=== PATIENT | male | born 1965 | race Caucasian/White ===

== ENCOUNTER 2022-05-26 14:10 | Outpatient (CLI) | payer MEDICAID, SELFPAY ==
[2022-05-26 21:22] LABS: Albumin* 4.3 g/dL (3.3-5.0); Chloride* 101 mmol/L (96-114); Potassium* 4.2 mmol/L (3.6-5.1); Sodium* 136 mmol/L (135-149)
[2022-05-26 21:23] LABS: Alkaline Phosphatase* 92 U/L (40-150); Aspartate Amino Transferase* 46 U/L (12-35); Bilirubin Total* 1.1 mg/dL (0.1-1.5); Blood Urea Nitrogen* 19 mg/dL (7-30); Carbon Dioxide* 26 mmol/L (20-32); Estimated Glomerular Filt Rate 89 ml/min; Glucose* 102 mg/dL (60-115); Total Protein* 7.4 g/dL (6.0-8.3)
[2022-05-26 21:24] LABS: Alanine Aminotransferase* 64 U/L (4-50)
== END 2022-05-26 14:11 | disposition home or self-care (01) ==
PROVIDERS: PCP Family Medicine; Visit Provider Family Medicine
DX: E78.5 Hyperlipidemia, unspecified (principal); I10 Essential (primary) hypertension; R73.03 Prediabetes
CPT/HCPCS: 80053

== ENCOUNTER 2023-04-05 07:30 | Emergency (ER) | payer MEDICAID, SELFPAY ==
[2023-04-05 07:35] VITALS: BP 167/92; PULSE 113; RESP 18; TEMP 36.6; O2SAT 99; BMI 36.0
--- NOTE | 2023-04-05 08:26 | ED_ITS ---
HPI - General Adult General Date Seen: 04/05/23 Chief complaint: Urogenital Problems, Male Stated complaint: passing blood rectally Time Seen by Provider: 04/05/23 07:49 Source: patient Mode of arrival: ambulatory Limitations: no limitations History of Present Illness HPI narrative: Patient is a 58-year-old gentleman who presents here for evaluation of rectal bleeding, he had 3 episodes this morning where there was blood mixed in the stool, there is no pain when he passes this. He denies a history in the past of rectal bleeding, has no abdominal pain, maybe a little bit of bloating. Does not take ibuprofen or other NSAIDs, does drink alcohol but tells me he drinks not that much, maybe 2-3 oz per day. No history of previous liver issues. But there was some concern I noted in his chart about his alcohol intake. No family history of colon cancer, there is no personal history of this colon cancer or IBD. Does admit to me that he is very medical worried, has fairly bad anxiety over anything medical. No history of nasal bleeding, he is not vomiting up blood, no fevers chills or weight loss, or personal history of malignancy. Related Data Previous Rx's Medication Instructions Recorded ciclopirox 8 % topical solution 1 applic topical QDAY 8 weeks #6.6 05/26/22 mL rosuvastatin 5 mg tablet 2.5 mg (1/2 x 5 mg) PO .2x/wk #60 05/26/22 tabs Allergies Allergy/AdvReac Type Severity Reaction Status Date / Time No Known Drug Allergies Allergy Verified 04/05/23 07:34 Review of Systems Status of ROS: Reports: 10 or more systems reviewed and unremarkable except as noted in History and below [facility] Medical History Reactive cervical lymphadenopathy ?R59.0 - Localized enlarged lymph nodes (ICD-10) Nonalcoholic fatty liver disease (12/04/09) ?K76.0 - Fatty (change of) liver, not elsewhere classified (ICD-10) Knee pain, left ?M25.562 - Pain in left knee (ICD-10) Elevated transaminase measurement (12/08/09) ?R74.01 - Elevation of levels of liver transaminase levels (ICD-10) Cough due to bronchospasm ?J98.01 - Acute bronchospasm (ICD-10) Cough ?R05.9 - Cough, unspecified (ICD-10) Surgical History Status post laparoscopic cholecystectomy ?Z90.49 - Acquired absence of other specified parts of digestive tract (ICD- 10) Family History Aunt Colorectal cancer Father Sudden cardiac , Onset Age: 70 Kidney stone Sister Kidney stone Uncle Kidney stone Other Diabetes Social History Narrative: Does not drink alcohol Does not use illicit drugs Former smoker- quit 2010 Smoking Status: Never smoker Do you use any of these nicotine containing products: None Second hand tobacco smoke exposure: No How often do you have a drink containing alcohol: 2-3 times a week How many standard drinks containing alcohol do you have on a typical day: 1 or 2 How often do you have six or more drinks on one occasion: Never AUDIT-C Alcohol total score: 3 Non-prescribed substance use: denies use Exam Narrative: Exam Narrative: On examination in room 2 he is in no apparent distress delightful gentleman vital signs are listed otherwise normal with slight elevation is heart rate, likely due to his anxiety. Pupils are equal round reactive to light there is no scleral icterus or redness is conjunctiva are well perfused. TMs are normal his oropharynx is normal his neck is supple there is no lymphadenopathy anterior posterior chains or supraclavicular region, his chest is clear bilaterally with no wheezing crackles noted his heart sounds are normal his abdomen is obese, there is no organomegaly, no tenderness to palpation, bowel sounds are normal, normal male genitalia and otherwise uncircumcised. Rectal exam shows some areas of irritation just outside his rectal mucosa, that is slightly bleeding. Did have 1 small hemorrhoid internally, that was bleeding a little bit. But I could not feel any obvious masses, he does have a lot a rectal spasm, anoscope positions atraumatically, healthy mucosa is noted, with no evidence of blood, hemoccult is done, which is positive. We will go ahead and get some blood from this gentleman, I will do LFTs, CBC basic metabolic profile PT PTT, and I will speak to him after this. He may need a colonoscopy, as he is in the age for screening. Const: Vital Signs, click to edit/add: Vital Signs - 24 hr 04/05/23 07:35 04/05/23 10:24 04/05/23 11:39 Temperature 97.8 F Pulse Rate [Right Pulse Oximeter] 113 H 95 95 Respiratory Rate 18 17 17 Blood Pressure [Ri ght Upper Arm] 167/92 H 161/94 H 149/86 H Pulse Oximetry 99 99 99 Oxygen Delivery Me thod Room Air Room Air Room Air Course Course Hospital Course: Patient had no further episodes of bleeding I reassured him, hemoglobin normal, LFTs were reasonable I put through an order for a colonoscopy, he will return if any signs symptoms of worsening. Vital Signs Vital signs: Initial Vital Signs Temperature 97.8 F 04/05/23 07:35 Temperature Source Temporal Artery Scan 04/05/23 07:35 Pulse Rate 113 H 04/05/23 07:35 Pulse Rhythm Regular 04/05/23 07:35 Pulse Strength 3+ Normal 04/05/23 07:35 Respiratory Rate 18 04/05/23 07:35 Blood Pressure 167/92 H 04/05/23 07:35 Blood Pressure Mean 117 H 04/05/23 07:35 Blood Pressure Position Sitting 04/05/23 07:35 Pulse Oximetry 99 04/05/23 07:35 Oxygen Delivery Method Room Air 04/05/23 07:35 Vital Signs Temperature 97.8 F 04/05/23 07:35 Pulse Rate 113 H 04/05/23 07:35 Respiratory Rate 18 04/05/23 07:35 Blood Pressure 167/92 H 04/05/23 07:35 Pulse Oximetry 99 04/05/23 07:35 Oxygen Delivery Method Room Air 04/05/23 07:35 Temperature 97.8 F 04/05/23 07:35 Pulse Rate 95 04/05/23 11:39 Respiratory Rate 17 04/05/23 11:39 Blood Pressure 149/86 H 04/05/23 11:39 Pulse Oximetry 99 04/05/23 11:39 Oxygen Delivery Method Room Air 04/05/23 11:39 Medical Decision Making MDM Narrative Medical decision making narrative: During this evaluation I considered multiple causes into rectal fissure, hemorrhoids, trauma, upper GI bleeding from sources, inflammatory bowel disease, diverticular disease with angiodysplasia, colon cancer, and other life- threatening causes. Lab Data Lab results reviewed: Yes I reviewed the patient's lab results Labs: Lab Results 04/05/23 04/05/23 Range/Units 08:44 09:29 WBC 6.76 (4.50-11.00) K/uL RBC 5.62 (4.30-5.90) m/uL Hgb 16.2 (13.5-17.5) gm/dL Hct 48.9 (37.0-53.0) % MCV 87 (80-100) fL MCH 29 (26-34) pg MCHC 33 (32-36) gm/dL RDW Coeff of Christiane 12.7 (11.5-15.5) % Plt Count 237 (140-440) K/uL Neut % (Auto) 80.0 H (42.0-72.0) % Lymph % (Auto) 14.5 L (20-44) % Eagle % (Auto) 4.1 (0.0-11.0) % Eos % (Auto) 0.3 (0.0-7.0) % Baso % (Auto) 0.4 (0.0-3.0) % Neut # (Auto) 5.40 (1.7-7.0) K/uL Lymph # (Auto) 1.00 (0.90-2.90) K/uL Eagle # (Auto) 0.30 (0.00-0.90) K/UL Eos # (Auto) 0.02 (0.00-0.50) K/uL Baso # (Auto) 0.03 (0.00-0.30) K/uL INR 0.96 (0.91-1.10) APTT 30 (23-33) Seconds Sodium 137 (135-149) mmol/L Potassium 3.9 (3.6-5.1) mmol/L Chloride 103 (96-114) mmol/L Carbon Dioxide 27 (20-32) mmol/L BUN 16 (7-30) mg/dL Creatinine 0.9 (0.5-1.5) mg/dL Estimated Creat Clear 85.69 Estimated GFR 100 ml/min Glucose 134 H (60-115) mg/dL Calcium 8.9 (8.4-10.6) mg/dL Total Bilirubin 0.7 (0.1-1.5) mg/dL Direct Bilirubin 0.3 (0.0-0.5) mg/dL AST 39 H (12-35) U/L ALT 36 (4-50) U/L Alkaline Phosphatase 106 (40-150) U/L Total Protein 7.7 (6.0-8.3) g/dL Albumin 4.5 (3.3-5.0) g/dL Lab Acknowledgement Test Added Discharge Plan Discharge Clinical Impression: Anxiety about health, Rectal bleed Patient Disposition: Home, Self-Care Condition: Stable Instructions: Gastrointestinal Bleeding (ED), Rectal Bleeding (ED), Anxiety (ED) Additional Instructions: Home rest avoidance of nonsteroidal anti-inflammatory drugs (ibuprofen, Aleve, aspirin) avoidance of alcohol, follow-up for colonoscopy of I have ordered this. Make an appointment to see a primary care physician, for further evaluation. I think this is likely little bit of irritation, maybe even internal hemorrhoid causing her discomfort, increasing bleeding, where your having more than a cup of blood, then you need to come back and be seen, if your straining to have a bowel movement, then a bowel softener such as Colace is recommended. Return as above Prescriptions: No Action rosuvastatin 5 mg tablet 2.5 mg PO .2x/wk Qty: 60 1RF ciclopirox 8 % solution 1 applic topical QDAY 56 Days Qty: 6.6 3RF Follow Up/Referrals: Alexander Kramer MD [Staff Physician] - Colleen Alvarez MD [Primary Care Provider] - Stand Alone Forms: [employer] Info Instructions
[2023-04-05 08:56] LABS: Basophils Absolute Auto 0.03 K/uL (0.00-0.30); Basophils Percent Auto 0.4 % (0.0-3.0); Eosinophils Absolute Auto 0.02 K/uL (0.00-0.50); Eosinophils Percent Auto 0.3 % (0.0-7.0); Hematocrit 48.9 % (37.0-53.0); Hemoglobin* 16.2 gm/dL (13.5-17.5); Immature Granulocytes Abs Auto 0.05 K/uL (0.00-0.30); Immature Granulocytes Pct Auto 0.7 %; Lymphocytes Percent Auto 14.5 % (20-44); Mean Corpuscular HGB Conc 33 gm/dL (32-36); Mean Corpuscular Hemoglobin 29 pg (26-34); Mean Corpuscular Volume 87 fL (80-100); Monocytes Percent Auto 4.1 % (0.0-11.0); Platelet Count* 237 K/uL (140-440); RDW Coefficient of Variation % 12.7 % (11.5-15.5); Red Blood Count 5.62 m/uL (4.30-5.90); White Blood Count* 6.76 K/uL (4.50-11.00)
[2023-04-05 09:04] LABS: Slide Review Reflex No
[2023-04-05 09:12] LABS: Chloride* 103 mmol/L (96-114); Potassium* 3.9 mmol/L (3.6-5.1); Sodium* 137 mmol/L (135-149)
[2023-04-05 09:13] LABS: INR 0.96 (0.91-1.10); Prothrombin Time 13.4 Seconds
[2023-04-05 09:14] LABS: Partial Thromboplastin Time* 30 Seconds (23-33)
[2023-04-05 09:15] LABS: Blood Urea Nitrogen* 16 mg/dL (7-30); Carbon Dioxide* 27 mmol/L (20-32); Creatinine* 0.9 mg/dL (0.5-1.5); Est. Creatinine Clearance* 85.69; Estimated Glomerular Filt Rate 100 ml/min
[2023-04-05 09:16] LABS: Calcium* 8.9 mg/dL (8.4-10.6); Glucose* 134 mg/dL (60-115)
[2023-04-05 10:24] VITALS: BP 161/94; PULSE 95; RESP 17; O2SAT 99
[2023-04-05 11:26] LABS: Albumin* 4.5 g/dL (3.3-5.0)
[2023-04-05 11:29] LABS: Alanine Aminotransferase* 36 U/L (4-50); Alkaline Phosphatase* 106 U/L (40-150); Aspartate Amino Transferase* 39 U/L (12-35); Bilirubin Direct* 0.3 mg/dL (0.0-0.5); Bilirubin Total* 0.7 mg/dL (0.1-1.5); Total Protein* 7.7 g/dL (6.0-8.3)
[2023-04-05 11:39] VITALS: BP 149/86; PULSE 95; RESP 17; O2SAT 99
== END 2023-04-05 11:57 | disposition home or self-care (01) ==
PROVIDERS: Emergency Provider Family Medicine; PCP Family Medicine
DX: F41.9 Anxiety disorder, unspecified (principal); K62.5 Hemorrhage of anus and rectum
CPT/HCPCS: 36415; 80048; 80076; 85025; 85610; 85730; 99283; 99284

== ENCOUNTER 2023-12-15 08:30 | Outpatient (CLI) | payer MEDICAID, SELFPAY | END 2023-12-15 08:31 | disposition home or self-care (01) | PROVIDERS: Visit Provider Physician Assistant Medical | DX: E78.2 Mixed hyperlipidemia (principal); Z12.5 Encounter for screening for malignant neoplasm of prostate; Z11.3 Encounter for screening for infections with a predominantly sexual mode of transmission; Z13.9 Encounter for screening, unspecified | CPT/HCPCS: 80053; 80061; 86703; 86803; G0103 ==

== ENCOUNTER 2024-01-04 19:22 | Emergency (ER) | payer MEDICAID, SELFPAY ==
[2024-01-04 19:33] VITALS: BP 163/84; PULSE 133; RESP 18; TEMP 36.5; O2SAT 99; BMI 26.9
[2024-01-04 20:02] LABS: Lactate Sepsis w/Reflex* 3.7 mmol/L (0.5-1.9)
[2024-01-04 20:06] LABS: Basophils Absolute Auto 0.03 K/uL (0.00-0.30); Basophils Percent Auto 0.3 % (0.0-3.0); Eosinophils Absolute Auto 0.04 K/uL (0.00-0.50); Eosinophils Percent Auto 0.4 % (0.0-7.0); Hematocrit 44.7 % (37.0-53.0); Hemoglobin* 15.4 gm/dL (13.5-17.5); Immature Granulocytes Abs Auto 0.03 K/uL (0.00-0.30); Immature Granulocytes Pct Auto 0.3 %; Lymphocytes Absolute Auto 3.34 K/uL (0.90-2.90); Lymphocytes Percent Auto 35.4 % (20-44); Mean Corpuscular HGB Conc 35 gm/dL (32-36); Mean Corpuscular Hemoglobin 29 pg (26-34); Mean Corpuscular Volume 85 fL (80-100); Monocytes Percent Auto 9.8 % (0.0-11.0); Neutrophils Absolute Auto 5.07 K/uL (1.7-7.0); Neutrophils Percent Auto 53.8 % (42.0-72.0); Platelet Count* 259 K/uL (140-440); RDW Coefficient of Variation % 12.5 % (11.5-15.5); Red Blood Count 5.29 m/uL (4.30-5.90); White Blood Count* 9.43 K/uL (4.50-11.00)
--- NOTE | 2024-01-04 20:08 | ED.NURSE ---
POC blood glucose 200.
--- NOTE | 2024-01-04 20:12 | ED_ITS ---
HPI - General Adult General Date Seen: 01/04/24 Chief complaint: Arrhythmia/Palpitations Stated complaint: irregular heartbeat, chest pain Time Seen by Provider: 01/04/24 19:32 Source: patient and RN notes reviewed Mode of arrival: ambulatory Limitations: no limitations History of Present Illness HPI narrative: Patient is a 58-year-old who presents for evaluation of a sensation of his heart racing and pounding. He says this started about 10:00 a.m. this morning, he was sitting down at the time. He does have a history of intermittent panic attacks and initially thought that he was having a panic attack. He says he is usually able to quite himself down by thinking happy thoughts, doing something on his phone etcetera. He tried those tactics, but throughout the day the sensation p ersisted any now no longer feels that this is related to a panic attack. He does feel concerned about what is going on, he says he feels somewhat scared, but denies feeling anxious. He has felt like his mouth is very dry today despite trying to keep up with fluids. He has not had chest pain, specifically no pleuritic chest pain, has not had shortness of breath, has not had abdominal pain, nausea vomiting or diarrhea, black or bloody stools. No fevers. No cough. He notes a history of high cholesterol as well as high blood pressure for which he was recently started on lisinopril/hydrochlorothiazide. He started this a couple of weeks ago. He does not smoke, denies alcohol or drug use. He does drink caffeine every morning, he stops at [employer] for a cup of coffee. Does not drink energy drinks. Related Data Previous Rx's Medication Instructions Recorded lisinopril 10 1 tab PO QDAY #90 tabs 12/19/23 mg-hydrochlorothiazide 12.5 mg tablet rosuvastatin 5 mg tablet 5 mg PO QDAY #90 tabs 12/19/23 potassium chloride 20 mEq 20 meq PO DAILY #20 tabs 01/04/24 tablet,extended release Allergies Allergy/AdvReac Type Severity Reaction Status Date / Time No Known Drug Allergies Allergy Verified 12/19/23 11:38 Review of Systems Status of ROS: Reports: 10 or more systems reviewed and unremarkable except as noted in History and below [facility] Medical History Microscopic hematuria ?R31.29 - Other microscopic hematuria (ICD-10) Reactive cervical lymphadenopathy ?R59.0 - Localized enlarged lymph nodes (ICD-10) Nonalcoholic fatty liver disease (12/04/09) ?K76.0 - Fatty (change of) liver, not elsewhere classified (ICD-10) Knee pain, left ?M25.562 - Pain in left knee (ICD-10) Elevated transaminase measurement (12/08/09) ?R74.01 - Elevation of levels of liver transaminase levels (ICD-10) Cough due to bronchospasm ?J98.01 - Acute bronchospasm (ICD-10) Cough ?R05.9 - Cough, unspecified (ICD-10) Surgical History Status post laparoscopic cholecystectomy ?Z90.49 - Acquired absence of other specified parts of digestive tract (ICD- 10) Family History (Updated 12/15/23 @ 08:29 by Hazel Gerber PA-C) Aunt Colorectal cancer Father Sudden cardiac , Onset Age: 70 Kidney stone Sister Kidney stone Uncle Kidney stone Mother High blood pressure Other Diabetes Social History (Updated 12/15/23 @ 08:26 by Hazel Gerber PA-C) Narrative: Immigrated from [place] in 20 yo. Has family there still. Does not drink alcohol Does not use illicit drugs Former smoker- quit 2010 Smoking Status: Never smoker Do you use any of these nicotine containing products: None Second hand tobacco smoke exposure: No How often do you have a drink containing alcohol: 2-3 times a week How many standard drinks containing alcohol do you have on a typical day: 1 or 2 How often do you have six or more drinks on one occasion: Never AUDIT-C Alcohol total score: 3 Non-prescribed substance use: denies use Exam Narrative: Exam Narrative: Vital signs as noted above. In general, an alert, well-appearing patient. Breathing easily. Head: Normocephalic, atraumatic. Eyes: Pupils are equal reactive. Extraocular movements are full. Conjunctivae are normal. ENT: Mucous membranes are moist. Throat is normal. Neck: Supple without lymphadenopathy. Heart: Tachycardic and regular, no obvious murmur. Lungs: Clear bilaterally. No increased work of breathing, crackles or wheezes. Abdomen: Soft and nontender. No organomegaly. Extremities: Well perfused. No edema. No calf tenderness. Pulses intact. Neurologic: Patient is alert and oriented to person and place. Speech is fluent. Face is symmetric. Moves all extremities equally. Affect: Normal. Skin: Warm and dry. Well perfused. Const: Vital Signs, click to edit/add: Vital Signs - 24 hr 01/04/24 19:33 01/04/24 20:40 Temperature 97.7 F Pulse Rate [Pulse Oximeter] 133 H 109 H Respiratory Rate 18 Blood Pressure [Ri ght Upper Arm] 163/84 H 168/86 H Pulse Oximetry 99 96 Oxygen Delivery Me thod Room Air Documenting provider has reviewed patient's vital signs: yes Course Course ED Course: Patient is a very pleasant man who presents with tachycardia of uncertain etiology. He had an EKG on arrival which showed a sinus tachycardia with a ventricular rate of 130, he has some ST elevation in AVR and just a trace ST depression throughout the precordium. T-waves are unremarkable. He does not have any chest pain. Point of care troponin is pending. Other considerations include anemia, dehydration, metabolic disturbance, pulmonary embolism, infection. Patient's labs are notable for a normal white blood cell count of 9.4, normal hemoglobin of 15.4, normal platelet count. His D-dimer is less than 0.27, in the absence of any respiratory symptoms or chest pain, doubt pulmonary embolism as a cause for his tachycardia. His metabolic panel was notable for a sodium of 136, potassium of 3.1, normal creatinine of 0.9. Blood sugar was elevated at 193. I did check hemoglobin A1c and this is just to take high at 5.7%. His lactate initially was 3.7, rechecked after L of fluids and it is 1.9. LFTs unremarkable. TSH was normal at 1.2. Point of care troponin was 0. Patient was started on lisinopril/hydrochlorothiazide a couple of weeks ago and I think this likely is contributing to both his hypokalemia and probably a component of dehydration. It may be that he would do better on a non combination pill of just lisinopril, for now I have replaced his potassium here and will send him home on some oral potassium, have encouraged him to work on hydration at home, and he will see his primary provider next week. If he is continuing to have problems, or if it seems as if the hydrochlorothiazide just does not the best drug for him, medication can be adjusted at that time. His tachycardia is improved, heart rate was 103. Blood pressures have been mildly elevated throughout, no hypotension. Vital Signs Vital signs: Initial Vital Signs Temperature 97.7 F 01/04/24 19:33 Temperature Source Temporal Artery Scan 01/04/24 19:33 Pulse Rate 133 H 01/04/24 19:33 Pulse Rhythm Regular 01/04/24 19:33 Respiratory Rate 18 01/04/24 19:33 Blood Pressure 163/84 H 01/04/24 19:33 Blood Pressure Mean 110 H 01/04/24 19:33 Blood Pressure Position Sitting 01/04/24 19:33 Pulse Oximetry 99 01/04/24 19:33 Oxygen Delivery Method Room Air 01/04/24 19:33 Vital Signs Temperature 97.7 F 01/04/24 19:33 Pulse Rate 133 H 01/04/24 19:33 Respiratory Rate 18 01/04/24 19:33 Blood Pressure 163/84 H 01/04/24 19:33 Pulse Oximetry 99 01/04/24 19:33 Oxygen Delivery Method Room Air 01/04/24 19:33 Temperature 97.7 F 01/04/24 19:33 Pulse Rate 109 H 01/04/24 20:40 Respiratory Rate 18 01/04/24 19:33 Blood Pressure 168/86 H 01/04/24 20:40 Pulse Oximetry 96 01/04/24 20:40 Oxygen Delivery Method Room Air 01/04/24 19:33 Medications Administered Medications: Discontinued Medications Generic Name Dose Route Start Last Admin Trade Name Freq PRN Reason Stop Dose Admin Sodium Chloride 1,000 mls @ 1,000 mls/hr 01/04/24 20:00 01/04/24 21:44 0.9 % Sodium Chloride 1000 Ml IV 01/04/24 20:59 1,000 mls/hr .Q1H PRITESH Administration Medical Decision Making Lab Data Labs: Lab Results 01/04/24 01/04/24 01/04/24 Range/Units 19:47 19:51 19:56 WBC 9.43 (4.50-11.00) K/uL RBC 5.29 (4.30-5.90) m/uL Hgb 15.4 (13.5-17.5) gm/dL Hct 44.7 (37.0-53.0) % MCV 85 (80-100) fL MCH 29 (26-34) pg MCHC 35 (32-36) gm/dL RDW Coeff of Christiane 12.5 (11.5-15.5) % Plt Count 259 (140-440) K/uL Neut % (Auto) 53.8 (42.0-72.0) % Lymph % (Auto) 35.4 (20-44) % [place] % (Auto) 9.8 (0.0-11.0) % Eos % (Auto) 0.4 (0.0-7.0) % Baso % (Auto) 0.3 (0.0-3.0) % Neut # (Auto) 5.07 (1.7-7.0) K/uL Lymph # (Auto) 3.34 H (0.90-2.90) K/uL [place] # (Auto) 0.90 (0.00-0.90) K/UL Eos # (Auto) 0.04 (0.00-0.50) K/uL Baso # (Auto) 0.03 (0.00-0.30) K/uL Abs Immat Gran (auto) 0.03 (0.00-0.30) K/uL Imm/Tot Granulo (auto) 0.3 % D-Dimer Quant (PE/DVT) < 0.27 (0.00-0.50) ug/ml Sodium 136 (135-149) mmol/L Potassium 3.1 L (3.6-5.1) mmol/L Chloride 101 (96-114) mmol/L Carbon Dioxide 23 (20-32) mmol/L Anion Gap 12 (7-15) mEq/L BUN 22 (7-30) mg/dL Creatinine 0.9 (0.5-1.5) mg/dL Estimated Creat Clear 88.67 Estimated GFR 100 ml/min Glucose 193 H (60-115) mg/dL Hemoglobin A1c 5.7 H (0-5.6) % Lactate 3.7 H (0.5-1.9) mmol/L Calcium 9.3 (8.4-10.6) mg/dL Magnesium 2.1 (1.5-2.6) mg/dL Total Bilirubin 0.7 (0.1-1.5) mg/dL Direct Bilirubin 0.1 (0.0-0.5) mg/dL AST 30 (12-35) U/L ALT 28 (4-50) U/L Alkaline Phosphatase 91 (40-150) U/L Total Protein 7.3 (6.0-8.3) g/dL Albumin 4.4 (3.3-5.0) g/dL TSH 1.200 (0.270-4.200) uIU/mL POC Glucose 200 H (60-115) mg/dl POC Troponin I 0.00 L (0.01-0.04) ng/ml 01/04/24 Range/Units 21:40 WBC (4.50-11.00) K/uL RBC (4.30-5.90) m/uL Hgb (13.5-17.5) gm/dL Hct (37.0-53.0) % MCV (80-100) fL MCH (26-34) pg MCHC (32-36) gm/dL RDW Coeff of Christiane (11.5-15.5) % Plt Count (140-440) K/uL Neut % (Auto) (42.0-72.0) % Lymph % (Auto) (20-44) % [place] % (Auto) (0.0-11.0) % Eos % (Auto) (0.0-7.0) % Baso % (Auto) (0.0-3.0) % Neut # (Auto) (1.7-7.0) K/uL Lymph # (Auto) (0.90-2.90) K/uL [place] # (Auto) (0.00-0.90) K/UL Eos # (Auto) (0.00-0.50) K/uL Baso # (Auto) (0.00-0.30) K/uL Abs Immat Gran (auto) (0.00-0.30) K/uL Imm/Tot Granulo (auto) % D-Dimer Quant (PE/DVT) (0.00-0.50) ug/ml Sodium (135-149) mmol/L Potassium (3.6-5.1) mmol/L Chloride (96-114) mmol/L Carbon Dioxide (20-32) mmol/L Anion Gap (7-15) mEq/L BUN (7-30) mg/dL Creatinine (0.5-1.5) mg/dL Estimated Creat Clear Estimated GFR ml/min Glucose (60-115) mg/dL Hemoglobin A1c (0-5.6) % Lactate 1.9 (0.5-1.9) mmol/L Calcium (8.4-10.6) mg/dL Magnesium (1.5-2.6) mg/dL Total Bilirubin (0.1-1.5) mg/dL Direct Bilirubin (0.0-0.5) mg/dL AST (12-35) U/L ALT (4-50) U/L Alkaline Phosphatase (40-150) U/L Total Protein (6.0-8.3) g/dL Albumin (3.3-5.0) g/dL TSH (0.270-4.200) uIU/mL POC Glucose (60-115) mg/dl POC Troponin I (0.01-0.04) ng/ml Discharge Plan Discharge Clinical Impression: Dehydration, Hypokalemia Patient Disposition: Home, Self-Care Condition: Improved Instructions: Dehydration (ED), Hypokalemia (ED) Prescriptions: New potassium chloride 20 mEq tablet extended release 20 meq PO DAILY Qty: 20 2RF No Action lisinopril-hydrochlorothiazide 10-12.5 mg tablet 1 tab PO QDAY Qty: 90 0RF Rx Instructions: one tablet daily for blood pressure rosuvastatin 5 mg tablet 5 mg PO QDAY Qty: 90 0RF Rx Instructions: one tablet once daily for cholesterol Follow Up/Referrals: Hazel Gerber PA-C [Primary Care Provider] - Stand Alone Forms: [employer] Info Instructions
[2024-01-04 20:14] LABS: Glucose, Point-of-Care* 200 mg/dl (60-115)
[2024-01-04 20:18] LABS: Albumin* 4.4 g/dL (3.3-5.0); Chloride* 101 mmol/L (96-114); Sodium* 136 mmol/L (135-149)
[2024-01-04 20:19] LABS: Potassium* 3.1 mmol/L (3.6-5.1)
[2024-01-04 20:21] LABS: Alanine Aminotransferase* 28 U/L (4-50); Alkaline Phosphatase* 91 U/L (40-150); Anion Gap 12 mEq/L (7-15); Aspartate Amino Transferase* 30 U/L (12-35); Bilirubin Direct* 0.1 mg/dL (0.0-0.5); Bilirubin Total* 0.7 mg/dL (0.1-1.5); Blood Urea Nitrogen* 22 mg/dL (7-30); Calcium* 9.3 mg/dL (8.4-10.6); Carbon Dioxide* 23 mmol/L (20-32); Creatinine* 0.9 mg/dL (0.5-1.5); Est. Creatinine Clearance* 88.67; Estimated Glomerular Filt Rate 100 ml/min; Glucose* 193 mg/dL (60-115); Total Protein* 7.3 g/dL (6.0-8.3)
[2024-01-04 20:22] LABS: Magnesium* 2.1 mg/dL (1.5-2.6)
[2024-01-04 20:30] LABS: Slide Review Reflex No
[2024-01-04 20:40] VITALS: BP 168/86; PULSE 109; O2SAT 96
[2024-01-04 20:41] LABS: Hemoglobin A1C* 5.7 % (0-5.6)
[2024-01-04 20:52] LABS: D Dimer Quantitative* < 0.27 ug/ml (0.00-0.50)
[2024-01-04] MEDS: 0.9 % SODIUM CHLORIDE 1000 ml 1,000 ML IV (21:44)
[2024-01-04 21:45] LABS: Lactate* 1.9 mmol/L (0.5-1.9)
[2024-01-04] MEDS: POTASSIUM BICARB 25 MEQ EFFERVESCENT TAB 50 MEQ PO (22:25)
== END 2024-01-04 22:36 | disposition home or self-care (01) ==
PROVIDERS: Emergency Provider Emergency Medicine; PCP Physician Assistant Medical
DX: E87.6 Hypokalemia (principal); E86.0 Dehydration
CPT/HCPCS: 36415; 80048; 80076; 82947; 83036; 83605; 83735; 84443; 84484; 85025; 85379; 93005; 94761; 99283; 99284; A9270; J7030

== ENCOUNTER 2024-03-29 08:15 | Outpatient (CLI) | payer MEDICAID, SELFPAY ==
--- OUTSIDE RECORDS SUMMARY | 2024-04-02 13:44 | XMS_ITS | Referral Summary ---
Author Organization [place] Address [address] [place] [id number] Care Team Providers Care Major Sales Associate Name Role Phone [facility] Primary Care Provider + Allergies No known active allergies Medications No known medications Social History Tobacco Use Types Packs/Day Years Used Date Smoking Tobacco: Never Alcohol Use Standard Drinks/Week Comments No 0 (1 standard drink = 0.6 oz pur e alcohol) Sex and Gender Information Value Date Recorded Sex Assigned at Not on file Gender Identity Not on file Sexual Orientation Not on file Last Filed Vital Signs Vital Sign Reading Time Taken Comments Blood Pressure 179/97 05/05/2018 12:39 AM CDT Pulse 111 05/05/2018 12:39 AM CDT Temperature 37.2 ??C (99 ??F) 05/05/2018 12:39 AM CDT Respiratory Rate 18 05/05/2018 12:39 AM CDT Oxygen Saturation 99% 05/05/2018 12:39 AM CDT Inhaled Oxygen Concentration - - Weight - - Height - - Body Mass Index - - Plan of Treatment Not on file Care Teams Major Sales Associate Relationship Specialty Start Date End Date [facility] [address] [place] [id number] [facility] - General 05/05/18
--- OUTSIDE RECORDS SUMMARY | 2024-04-02 13:44 | XMS_ITS | Clinical Summary ---
Author Organization [place] Address [address] [place] [address] Care Team Providers Care Accounting Advisory Services Manager Name Role Phone [facility] Primary Care Provider + Allergies [...] of Treatment Not on file Care Teams Accounting Advisory Services Manager Relationship Specialty Start Date End Date [facility] [address] [place] [id number] [facility] - General 05/05/18
== END 2024-03-29 08:16 | disposition home or self-care (01) ==
LOC: NFLDREF 04-02 13:41
PROVIDERS: PCP Physician Assistant Medical; Referring Provider Physician Assistant Medical; Visit Provider Physician Assistant Medical
DX: E78.5 Hyperlipidemia, unspecified (principal); I10 Essential (primary) hypertension
CPT/HCPCS: 80053; 80061

== ENCOUNTER 2025-04-13 04:52 | Emergency (ER) | payer MEDICAID, SELFPAY ==
--- OUTSIDE RECORDS SUMMARY | 2009-12-19 10:30 | XMS_ITS | Continuity of Care Document ---
Author Organization [facility] Address [address] [address] [place] [address] Phone Care Team Providers Care Motion Picture Narrator Name Role Phone Unavailable Unavailable Unavailable Allergies, Adverse Reactions, Alerts Substance Reaction Status Criticality No Known allergies Medications Medication Instructions Dosage Effective Dates (start - stop) Status Comments CITALOPRAM HBR (unknown strength) Take one tablet by mouth daily Not Available - Active Procedures Procedure Date Offic/outpt E&m Estab Low-mod 0 G8447 Offic Cons New/estab Mod-hi 60 10 G8447 Advance Directives Directive Yes / No Effective Date File Name Resuscitation Not Answered N/A N/A Life Support Not Answered N/A N/A Intubation Not Answered N/A N/A Antibiotics Not Answered N/A N/A IV Fluid Support Not Answered N/A N/A Tube Feed Not Answered N/A N/A Other Directive N/A N/A WARNING:The information contained in this section is historical and is provided for information only and does not constitute a legal document or any assurance that the information is still accurate. Please verify the information with the gandara of the legal document before using it for clinical purposes. Encounters Encounter Description Practice Location Reason(s) For Visit Diagnoses Date Provider Providers Copied on Encounter Offic/outpt E&m Estab Low-mod [facility], [address] [address], [place], [place], [id number], [place] tel:[phone] [facility] abnormal liver enzymes follow up (chief complaint) Non-alcoholic Fatty LiverAbnormal Liver Enzymes 0 No Information Offic Cons New/estab Mod-hi 60 [facility], [address] [address], [place], [place], [id number], [place] tel:[phone] [facility] Elevated liver enzymes (chief complaint) Abnormal Liver Enzymes 0 Rajan Pendleton. [address], [id number], [place]. tel:[phone] Family History Family Member Type Diagnosis Age At Onset First degree family history Problem (finding) No history of Ulcerative Colitis First degree family history Problem (finding) No history of Crohn's First degree family history Problem (finding) No history of Cancer, colon First degree family history Problem (finding) No Family history of No history of Colon Polyps Payers Payer name Insurance type Covered constitution party ID Authoriza tion(s) No Information Social History Type Description Quantity Date Captured Comments Alcohol Use Details Caffeine Use Details Unknown Tobacco Use Status No Information Smoking Status No Information Sex Male Chief Complaint And Reason For Visit From encounter dated '12/19/2009 15:30'. abnormal liver enzymes follow up (chief complaint) Reason For Referral Reason For Referral No Information History Of Present Illness Encounter Date Complaint History Of Prese nt Illness No Information Functional Status Date Functional Assessmen t No Information Instructions Date Instruction Additional Infor mation No Information Assessments Type Assessment Date No Information Patient Care Teams Name Effective Dates (start - stop) Status Members No Information
--- OUTSIDE RECORDS SUMMARY | 2009-12-19 10:30 | XMS_ITS | Continuity of Care Document ---
Author Organization [facility] Address [address] [address] [place] [address] Phone Care Team Providers Care Bankruptcy Judge Name Role Phone Unavailable Unavailable Unavailable Allergies, [...] Copied on Encounter Offic/outpt E&m Estab Low-mod [facility] [place] [facility], [address] [address], [place], [place], [id number], [place] tel:[phone] [facility] abnormal liver enzymes follow up (chief complaint) Non-alcoholic Fatty LiverAbnormal Liver Enzymes 0 No Information Offic Cons New/estab Mod-hi 60 [facility], [address] [address], [place], [place], [id number], [place] tel:[phone] [facility] Elevated liver enzymes (chief complaint) Abnormal Liver Enzymes 0 Rajan Pendleton. [address], [id number], [place]. tel:[phone] Family History Family Member Type Diagnosis Age At Onset First degree family history Problem (finding) No history of Ulcerative Colitis First degree family history Problem (finding) No history of Crohn's First degree family history Problem (finding) No history of Cancer, colon First degree family history Problem (finding) No Family history of No history of Colon Polyps Payers Payer name Insurance type Covered democrat ID Authoriza tion(s) No Information Social History [...]
--- OUTSIDE RECORDS SUMMARY | 2025-04-13 04:53 | XMS_ITS | Clinical Summary ---
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 Gender Identity Not on file Sexual Orientation Not on file Last Filed Vital Signs Vital Sign Reading Time Taken Comments Blood Pressure 179/97 05/05/2018 12:39 AM CDT Pulse 111 05/05/2018 12:39 AM CDT Temperature 37.2 C (99 F) 05/05/2018 12:39 AM CDT Respiratory Rate 18 05/05/2018 12:39 AM CDT Oxygen Saturation 99% 05/05/2018 12:39 AM CDT Inhaled Oxygen Concentration - - Weight - - Height - - Body Mass Index - - Plan of Treatment Not on file Insurance [employer] Care Teams Kraft Digester Operator Relationship Specialty Start Date End Date [facility] [address] [place] [address] PCP - General 05/05/18
[2025-04-13 05:10] VITALS: BP 146/73; PULSE 89; RESP 18; TEMP 36.9; O2SAT 99; BMI 35.5
--- NOTE | 2025-04-13 06:34 | ED.GENADULT ---
HPI - General Adult General Chief complaint: Eye Problems Stated complaint: eye injury Time Seen by Provider: 04/13/25 05:26 Source: patient Mode of arrival: ambulatory Limitations: no limitations History of Present Illness HPI narrative: 60-year-old male presents to the emergency department with a 18 hour history of tenderness in the right eye. Started when he was working in the [place], thinks his eye was struck by a tree branch. Has had a foreign body sensation since. Eyes watering, hard to see out of. No bleeding. Can make out vague shapes. Opposite left eye is unaffected. Has not tried any interventions to help with symptoms prior to coming to ED. Rationale of why he is coming in in the wee hours, so much later is unclear. No history of prior eye surgeries. Does not use any ocular medications on regular basis. Past medical history notable for hypertension, hyperlipidemia. Home meds are lisinopril, hydrochlorothiazide and rosuvastatin. Nonsmoker. ROS is notable for the eye symptoms only. Denies any other HEENT, skin or generalized complaints. Related Data Previous Rx's ?Medication ?Instructions ?Recorded potassium chloride 20 mEq 20 meq PO DAILY #20 tabs 01/04/24 tablet,extended release rosuvastatin 5 mg tablet 5 mg PO QDAY #90 tabs 04/05/24 lisinopril 10 1 tab PO QDAY #90 tabs 06/11/24 mg-hydrochlorothiazide 12.5 mg tablet Allergies Allergy/AdvReac Type Severity Reaction Status Date / Time No Known Drug Allergies Allergy Verified 04/13/25 05:12 [facility] Medical History Microscopic hematuria ?R31.29 - Other microscopic hematuria (ICD-10) Reactive cervical lymphadenopathy ?R59.0 - Localized enlarged lymph nodes (ICD-10) Nonalcoholic fatty liver disease (12/04/09) ?K76.0 - Fatty (change of) liver, not elsewhere classified (ICD-10) Knee pain, left ?M25.562 - Pain in left knee (ICD-10) Elevated transaminase measurement (12/08/09) ?R74.01 - Elevation of levels of liver transaminase levels (ICD-10) Cough due to bronchospasm ?J98.01 - Acute bronchospasm (ICD-10) Cough ?R05.9 - Cough, unspecified (ICD-10) Surgical History Status post laparoscopic cholecystectomy ?Z90.49 - Acquired absence of other specified parts of digestive tract (ICD-10) Family History Aunt Colorectal cancer Father Sudden cardiac , Onset Age: 70 Kidney stone Sister Kidney stone Uncle Kidney stone Mother High blood pressure Other Diabetes Social History Narrative: Immigrated from [place] in 20 yo. Has family there still. Does not drink alcohol Does not use illicit drugs Former smoker- quit 2010 Smoking Status: Never smoker Do you use any of these nicotine containing products: None Second hand tobacco smoke exposure: No How often do you have a drink containing alcohol: 2-3 times a week How many standard drinks containing alcohol do you have on a typical day: 1 or 2 How often do you have six or more drinks on one occasion: Never AUDIT-C Alcohol total score: 3 Non-prescribed substance use: denies use Exam Const: Vital Signs, click to edit/add: Vital Signs - 24 hr 04/13/25 05:10 04/13/25 06:39 Temperature 98.5 F 98.5 F Pulse Rate [Right Pulse Oximeter] 89 81 Respiratory Rate 18 18 Blood Pressure [Ri ght Upper Arm] 146/73 H 135/74 Pulse Oximetry 99 99 Oxygen Delivery Me thod Room Air Room Air Documenting provider has reviewed patient's vital signs: yes Common normals: no apparent distress General appearance: cooperative and well kempt HENMT: Common normals: normocephalic, moist oral mucous membranes and oropharynx normal Head and scalp: normocephalic Face and sinus: normal facial exam Eye: Common normals: PERRL and EOMs intact bilaterally Pupil: PERRL Other: Left eye with normal conjunctiva and sclera. Right eye with injected conjunctiva, injected sclera, no obvious foreign body on initial sweep. Watering noted. No swelling of the lid. Normal appearing pupil Neck & C-Spine: Common normals: no lymphadenopathy General: normal visual inspection Resp: Common normals: normal respiratory effort Effort & inspection: able to speak in complete sentences Psych: Common normals: speech normal Appearance: well kempt Attitude: engaged Activity/motor behavior: appropriate eye contact Speech: normal speech Skin: Common normals: no rashes or lesions noted General skin exam: no rashes or lesions noted Course Course ED Course: 60-year-old male with foreign body sensation in right eye after getting struck by a tree branch. Suspect foreign body versus corneal abrasion. Recommend fluorescent staining exam. After initial examination was benign, fluorescein and tetracaine were instilled into the right eye. Patient had excellent relief of pain with the tetracaine and vertical finding at the 2 o'clock position near the pupil noted on the cornea. Attempted to above with sterile Q-tip to ensure this was not a foreign body. No foreign body was able to be removed. I was then irrigated with sterile saline and 1 additional drop of tetracaine was placed again. Patient counseled on findings of corneal abrasion. Will start erythromycin eye ointment, 1st dose given in ED, remaining supply given to patient from ED, script filed. Will continue quarter-inch every 4 hours while awake for the next 3 days. Symptoms should be markedly better in 48 hours if not, need to make a follow-up appointment at [facility] Eye or I provider of choice. Alarm symptoms reviewed that would warrant ED presentation. Patient verbalized understanding and agreement. Vital Signs Vital signs: Initial Vital Signs Temperature 98.5 F 04/13/25 05:10 Temperature Source Temporal Artery Scan 04/13/25 05:10 Pulse Rate 89 04/13/25 05:10 Respiratory Rate 18 04/13/25 05:10 Blood Pressure 146/73 H 04/13/25 05:10 Blood Pressure Mean 97 04/13/25 05:10 Blood Pressure Position Sitting 04/13/25 05:10 Pulse Oximetry 99 04/13/25 05:10 Oxygen Delivery Method Room Air 04/13/25 05:10 Vital Signs Temperature 98.5 F 04/13/25 05:10 Pulse Rate 89 04/13/25 05:10 Respiratory Rate 18 04/13/25 05:10 Blood Pressure 146/73 H 04/13/25 05:10 Pulse Oximetry 99 04/13/25 05:10 Oxygen Delivery Method Room Air 04/13/25 05:10 Temperature 98.5 F 04/13/25 06:39 Pulse Rate 81 04/13/25 06:39 Respiratory Rate 18 04/13/25 06:39 Blood Pressure 135/74 04/13/25 06:39 Pulse Oximetry 99 04/13/25 06:39 Oxygen Delivery Method Room Air 04/13/25 06:39 Discharge Plan Discharge Clinical Impression: Abrasion, corneal Patient Disposition: Home w/ Parent or Adult Condition: Improved Instructions: Corneal Abrasion (DC) Additional Instructions: As we discussed, that scratch on your eye ball often feels like you have something stuck underneath the eyelid. This is a very common phenomenon, the nerves of the eye are very sneaky. The scratch was clearly seen. I did look for any retained foreign body and do not see any. The numbing drops that I placed in the eye will unfortunately wear off fairly soon. It is okay to use Tylenol 1000 mg every 6 hours and or ibuprofen 600 mg every 6 hours for discomfort. I have started you on antibiotic ointment to help reduce the risk of infection. Put a small amount of this in the eye every 4 hours while you are awake for the next 3 days. Symptoms should be markedly better in 48 hours. If they have not improved, please make a follow-up appointment at [facility] on the [facility] for re-evaluation and to have a look with more sophisticated equipment then I have available in the emergency room. Mild headache, runny nose and watery eyes are common when you have a corneal abrasion. No driving until your symptoms have resolved. Activity Level: Activity as Tolerated Discharge Diet: Regular Prescriptions: No Action potassium chloride 20 mEq tablet extended release 20 meq PO DAILY Qty: 20 2RF rosuvastatin 5 mg tablet 5 mg PO QDAY Qty: 90 3RF Rx Instructions: one tablet once daily for cholesterol lisinopril-hydrochlorothiazide 10-12.5 mg tablet 1 tab PO QDAY Qty: 90 2RF Rx Instructions: one tablet daily for blood pressure Follow Up/Referrals: Hazel Gerber PA-C [Primary Care Provider, Family Practice] Stand Alone Forms: [employer] Info Instructions
[2025-04-13 06:39] VITALS: BP 135/74; PULSE 81; RESP 18; TEMP 36.9; O2SAT 99
== END 2025-04-13 06:39 | disposition home or self-care (01) ==
LOC: ED 06:30
PROVIDERS: Emergency Provider Family Medicine; PCP Physician Assistant Medical
DX: S05.01XA Injury of conjunctiva and corneal abrasion without foreign body, right eye, initial encounter (principal); W22.8XXA Striking against or struck by other objects, initial encounter
CPT/HCPCS: 99283; A9270

== ENCOUNTER 2025-08-30 12:13 | Outpatient (CLI) | payer MEDICAID, SELFPAY | END 2025-08-30 12:14 | disposition home or self-care (01) | LOC: LKVREF 12:14 | PROVIDERS: PCP Physician Assistant Medical; Visit Provider Physician Assistant Medical | DX: E87.6 Hypokalemia (principal) | CPT/HCPCS: 80053; 80061; 83735; 84443; G0103 ==